=== PATIENT | male | born 1955 | race Caucasian/White ===

== ENCOUNTER 2016-10-28 05:34 | Observation (INO) | payer BC ==
[~2016-10-28] VITALS: Ht 172.7 cm; Wt 88.0 kg
[~2016-10-28 05:34] MED LIST: FLEXERIL10 MG PO; FLOMAX0.4 MG PO; LISINOPRIL20 MG; LISINOPRIL20 MG PO; MELOXICAM7.5 MG; MELOXICAM7.5 MG PO; METAXALONE800 MG; MULTI VITAMIN1 EACH PO; OSTEO BI-FLEX1 EAC1 PO; TOPROL XL50 MG PO; ULTRAM50 MG PO
[2016-10-28 06:37] VITALS: BP 136/84
[2016-10-28 13:59] VITALS: BP 154/85
[2016-10-28 16:05] VITALS: BP 140/84
[2016-10-28 19:47] VITALS: BP 125/82
[2016-10-28 20:00] VITALS: BP 125/82
[2016-10-28 23:39] VITALS: BP 143/79
[2016-10-29 03:50] VITALS: BP 100/58
[2016-10-29 03:51] VITALS: BP 100/58
[2016-10-29 07:15] VITALS: BP 121/78
[2016-10-29] MEDS ORDERED: TIZANIDINE HCL4 MG PO (08:51)
[2016-10-29] MEDS ORDERED: BACTRIM,SEPT1 TABLET PO (08:52)
[2016-10-29] MEDS ORDERED: PROMETHAZINE HC25 M1 PO (08:53)
[2016-10-29] MEDS ORDERED: LORTAB 7.5-3251 EACH PO (08:54)
== END 2016-10-29 10:57 | disposition home or self-care (01) ==
LOC: 3EAST 05:34 → 2SOUTH 05:34 → SDC 08:35 → 2SOUTH 11:48 → 3EAST 13:47 → EDSTATUS 15:10 → 2SOUTH 15:14 → 3EAST 10-29 10:57
DX: M48.02 Spinal stenosis, cervical region (principal); M47.12 Other spondylosis with myelopathy, cervical region; M50.020 Cervical disc disorder with myelopathy, mid-cervical region, unspecified level; M50.01 Cervical disc disorder with myelopathy, high cervical region; Z87.891 Personal history of nicotine dependence; R01.1 Cardiac murmur, unspecified; M19.90 Unspecified osteoarthritis, unspecified site
CPT/HCPCS: 72020; 76000; C1713; G0378; J0330; J0690; J1100; J1170; J2250; J2405; J2710; J3010; J3480